=== PATIENT | male | born 1960 | race Caucasian/White ===

== ENCOUNTER 2016-08-24 15:23 | Emergency (ER) | payer MEDICAID ==
[2016-08-24] MEDS ORDERED: SULFAMETH/TRIMETH DS 800/160 MG TABLET PO ONE (16:56)
[2016-08-24] MEDS ORDERED: IBUPROFEN 400 MG TABLET PO ONE (16:56)
[2016-08-24] MEDS ORDERED: CHERRY SYRUP 10 ML UDC PO ONE (16:57)
[2016-08-24] MEDS ORDERED: DEXAMETHASONE 10 MG/ML VIAL ONE (16:57)
[2016-08-24] MEDS: SULFAMETH/TRIMETH DS 800/160 MG TABLET PO STA (16:59)
[2016-08-24] MEDS: DEXAMETHASONE 10 MG/ML VIAL PO STA (16:59)
[2016-08-24] MEDS: IBUPROFEN 400 MG TABLET PO STA (16:59)
[2016-08-24] MEDS: HYDROcod/ACETAM 5/325 MG TABLET PO STA (17:15)
== END 2016-08-24 17:17 | disposition home or self-care (01) ==
DX: K04.7 Periapical abscess without sinus (principal); K02.9 Dental caries, unspecified; F17.200 Nicotine dependence, unspecified, uncomplicated
CPT/HCPCS: 99283; A9270

== ENCOUNTER 2016-10-13 15:33 | Outpatient (CLI) | payer MEDICAID | END 2016-10-13 15:34 | disposition home or self-care (01) | DX: J42 Unspecified chronic bronchitis (principal) ==

== ENCOUNTER 2017-04-25 23:21 | Outpatient (CLI) | payer SELFPAY | END 2017-04-25 23:22 | disposition critical access hospital (66) | LOC: EMS 23:21 | PROVIDERS: ATTEND Surgery | DX: R06.00 Dyspnea, unspecified (principal) | CPT/HCPCS: A0425; A0429 ==

== ENCOUNTER 2017-04-25 23:34 | Emergency (ER) | payer SELFPAY ==
[2017-04-26] MEDS ORDERED: IBUPROFEN 800 MG TABLET PO STA (00:05)
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
[2017-04-26] MEDS ORDERED: IBUPROFEN 800 MG TABLET PO ONE (00:16)
--- NOTE | 2017-04-26 00:54 | XRAY Preliminary Report ---
Exam: XR CHEST 2 VIEW PA/LAT IMPRESSION: COPD without acute process seen in the chest. [facility] SITE ID: [id number]
--- NOTE | 2017-04-26 00:56 | XRAY Report ---
EXAM: CHEST RADIOGRAPHY EXAM DATE: 04/26/2017 12:20 AM. CLINICAL HISTORY: Cough and dyspnea. COMPARISON: 10/13/2016. TECHNIQUE: 2 views. FINDINGS: Lungs/Pleura: Large volumes. No focal opacities evident. No pneumothorax or pleural effusion. Mediastinum: Within exam limitations, cardiomediastinal contour is normal. Other: Old left posterior rib fracture. IMPRESSION: COPD without acute process seen in the chest. [facility] Referring Provider Line: [phone] SITE ID: [id number]
[2017-04-26 01:22] VITALS: BP 115/79
== END 2017-04-26 01:31 | disposition home or self-care (01) ==
LOC: EDUNIT# → EDBD → ED 23:34 → SUPCPDRO 23:34 → ED 04-26 01:31
DX: J41.0 Simple chronic bronchitis (principal); F10.920 Alcohol use, unspecified with intoxication, uncomplicated; M54.5 Low back pain; F17.210 Nicotine dependence, cigarettes, uncomplicated; Z86.73 Personal history of transient ischemic attack (TIA), and cerebral infarction without residual deficits
CPT/HCPCS: 71020; 93005; 99283; 99284; A9270

== ENCOUNTER 2017-06-17 17:46 | Outpatient (CLI) | payer MEDICAID | END 2017-06-17 17:47 | disposition critical access hospital (66) | LOC: EMS 17:46 | PROVIDERS: ATTEND Surgery | DX: M25.551 Pain in right hip (principal); V18.4XXA Pedal cycle driver injured in noncollision transport accident in traffic accident, initial encounter; Y93.55 Activity, bike riding; Y92.413 State road as the place of occurrence of the external cause | CPT/HCPCS: A0425; A0427 ==

== ENCOUNTER 2017-06-17 18:18 | Inpatient (IN) | payer MEDICAID ==
[2017-06-17] MEDS ORDERED: HYDROmorphone 1 MG/ML SYRINGE IVP STA (19:50)
[2017-06-17] MEDS ORDERED: MULTIVITAMIN 10 ML in SODIUM CHLORIDE 0.9% 1,000 ML IV STA (19:51)
[2017-06-17] MEDS ORDERED: THIAMINE INJ 100 MG, FOLIC ACID INJ 1 MG in SODIUM CHLORIDE 0.9% 100ML 100 ML IV STA (19:51)
[2017-06-17] MEDS ORDERED: MAGNESIUM SULFATE 2 GRAM 2 GM/50 ML BAG IV SCH (19:51)
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
--- NOTE | 2017-06-17 19:59 | XRAY Report ---
EXAM: RIGHT HIP AND PELVIS RADIOGRAPHY EXAM DATE: 06/17/2017 07:44 PM. HISTORY: Trauma, pain. COMPARISONS: None. TECHNIQUE: 1 view of the pelvis and 1 view of the hip. FINDINGS: Bones: Oblique fracture through the intertrochanteric portion of the right femoral neck with almost c omplete apposition of fracture fragments and slight apex anterior angulation. Otherwise unremarkable. Joints: Mild bilateral hip joint space narrowing. Unremarkable SI joints and pubic symphysis. Soft Tissues: Unremarkable. IMPRESSION: Right intertrochanteric fracture. [facility] Referring Provider Line: [phone] SITE ID: [id number]
--- NOTE | 2017-06-17 19:59 | XRAY Preliminary Report ---
Exam: XR HIP W/PELVIS 4V RT IMPRESSION: Right intertrochanteric fracture. [facility] SITE ID: [id number]
[2017-06-17] MEDS ORDERED: SODIUM CHLORIDE FLUSH 0.9% 10 ML SYRINGE IVP PRN (20:17)
[2017-06-17] MEDS ORDERED: PROCHLORPERAZINE 10 MG/2 ML VIAL IVP PRN (20:17)
[2017-06-17] MEDS ORDERED: TEMAZEPAM 15 MG CAPSULE PO PRN (20:17)
[2017-06-17] MEDS ORDERED: LORazepam 0.5 MG TABLET PO PRN (20:21)
[2017-06-17] MEDS ORDERED: THIAMINE 100 MG/1 ML 2 ML MDV ONE (20:21)
[2017-06-17] MEDS ORDERED: ONDANSETRON 4 MG/2 ML VIAL IVP STA (20:30)
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
[2017-06-17 20:42] LABS: BASOPHILS # (AUTO) 0.1 10^3/uL (0.0-0.1); BASOPHILS % (AUTO) 0.7 %; EOSINOPHILS % (AUTO) 0.1 %; HGB - HEMOGLOBIN 12.9 g/dL (14.0-18.0); LYMPHOCYTES # (AUTO) 1.2 10^3/uL (1.5-3.5); LYMPHOCYTES % (AUTO) 7.5 %; MEAN CORPUSCULAR HGB CONC 33.3 g/dL (32.0-36.0); MEAN PLATELET VOLUME 10.8 fL (7.4-11.4); MONOCYTES # (AUTO) 0.5 10^3/uL (0.0-1.0); MONOCYTES % (AUTO) 2.9 %; NEUTROPHILS # (AUTO) 14.7 10^3/uL (1.5-6.6); NEUTROPHILS % (AUTO) 88.8 %; PLT - PLATELET COUNT 165 10^3/uL (130-450); RED BLOOD COUNT 4.02 10^6/uL (4.70-6.10); RED CELL DISTRIBUTION WIDTH 13.5 % (12.0-15.0); WHITE BLOOD COUNT 16.6 x10^3/uL (4.8-10.8)
[2017-06-17 20:48] LABS: PT - PROTHROMBIN TIME 11.4 secs (9.9-12.6)
[2017-06-17 20:54] LABS: ALBUMIN 4.6 g/dL (3.2-5.5); ALBUMIN/GLOBULIN RATIO 1.8 (1.0-2.2); BILIRUBIN,TOTAL 0.4 mg/dL (0.2-1.0); CALCIUM 8.4 mg/dL (8.5-10.3); CREATININE 0.7 mg/dL (0.6-1.2); MAGNESIUM 2.1 mg/dL (1.7-2.8); TOTAL PROTEIN 7.2 g/dL (6.7-8.2)
--- NOTE | 2017-06-17 21:14 | XRAY Report ---
EXAM: CHEST RADIOGRAPHY EXAM DATE: 06/17/2017 09:08 PM. CLINICAL HISTORY: Preop. COMPARISON: 04/26/2017 chest x-ray. TECHNIQUE: 1 view. FINDINGS: Lungs/Pleura: No focal opacities evident. No pleural effusion. No pneumothorax. Mediastinum: Within exam limitations, the cardiomediastinal contour is normal. Other: None. IMPRESSION: Normal single view chest. [facility] Referring Provider Line: [phone] SITE ID: [id number]
[2017-06-17] MEDS: SODIUM CHLORIDE FLUSH 0.9% 10 ML SYRINGE IVP SCH (22:36)
[2017-06-17] MEDS: oxyCODONE 5 MG TABLET PO PRN (22:49)
[2017-06-18] MEDS: oxyCODONE 5 MG TABLET PO PRN ×5 (02:56→23:53)
[2017-06-18] MEDS: SODIUM CHLORIDE FLUSH 0.9% 10 ML SYRINGE IVP SCH ×3 (04:56→18:02)
[2017-06-18] MEDS: D5.45NS W/20 MEQ KCL 1,000 ML IV SCH ×2 (06:14→18:00)
[2017-06-18] MEDS ORDERED: ROCURONIUM 50 MG/5 ML VIAL IVP ONE (10:15)
[2017-06-18] MEDS ORDERED: DEXAMETHASONE 4 MG/ML VIAL IVP ONE (10:15)
[2017-06-18] MEDS ORDERED: ACETAMINOPHEN 1,000 MG/100 ML 100 ML IV ONE (10:15)
[2017-06-18] MEDS ORDERED: ePHEDrine 50 MG/ML VIAL IVP ONE (10:15)
[2017-06-18] MEDS ORDERED: PHENYLEPHRINE 10 MG/ML VIAL IV ONE (10:15)
[2017-06-18] MEDS ORDERED: MIDAZOLAM 2 MG/2 ML VIAL IVP ONE (10:15)
[2017-06-18] MEDS ORDERED: PROPOFOL 200 MG/20 ML VIAL IVP ONE ×2 (10:15)
[2017-06-18] MEDS ORDERED: BUPIVACAINE 0.25%-EPI 1:200000 PF 30 ML VIAL SUBQ ONE ×2 (11:03)
[2017-06-18] MEDS ORDERED: LACTATED RINGERS 1,000 ML IV ONE ×2 (11:07→12:10)
[2017-06-18] MEDS: NICOTINE 21 MG PATCH TOP SCH ×2 (11:39→14:51)
[2017-06-18] MEDS: POLYETHYLENE GLYCOL 3350 17 GM PACKET PO SCH (11:41)
--- NOTE | 2017-06-18 12:02 | OPERATIVE REPORT ---
Operative Report - General Admit Date: 06/17/17 Procedure Date: 06/18/17 Planned Procedure: IM jessie right hip Pre-Op Diagnosis: intertrochanteric fx of right hip Procedure Performed: Intramedullary rodding right hip Post Op Diagnosis: same - Procedure Note Primary Surgeon: sim Anesthesia Provider: Karan Dillon Anesthesia Technique: General LMA
[2017-06-18] MEDS ORDERED: ACETAMINOPHEN 1,000 MG/100 ML 100 ML IV PRN (12:04)
[2017-06-18] MEDS ORDERED: BISACODYL 10 MG SUPP PR PRN (12:04)
[2017-06-18] MEDS ORDERED: ONDANSETRON 4 MG/2 ML VIAL IVP PRN (12:04)
[2017-06-18] MEDS: HYDROmorphone 1 MG/ML SYRINGE ONE ×2 (12:09→12:20)
--- NOTE | 2017-06-18 13:06 | XRAY Report ---
DATE OF SERVICE: RIGHT HIP AND PELVIS: 06/18/2017 COMPARISON: Hip and pelvis, right, 06/17/2017. INDICATION: Intraoperative views. FINDINGS-IMPRESSION: 1. ORTHOPEDIC HARDWARE IS PRESENT ABOUT THE RIGHT HIP. 2. ALIGNMENT APPEARS NEAR ANATOMIC. PLEASE REFER TO THE OPERATIVE REPORT FOR FURTHER DETAILS. TOTAL FLUORO TIME: 21 SECONDS. TOTAL NUMBER OF IMAGES: 2. TOTAL DOSE: 7.2 mGy TD: 06/18/2017 14:05 MTDD
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
[2017-06-18] MEDS: ACETAMINOPHEN 325 MG TABLET PO PRN (16:25)
[2017-06-18] MEDS: ceFAZolin 2 GM/50 ML 2 GM/50 ML BAG IV SCH (18:40)
[2017-06-18] MEDS ORDERED: CALCIUM CARBONATE CHEW 500 MG TABLET PO PRN (19:12)
[2017-06-18] MEDS ORDERED: CALCIUM CARBONATE CHEW 500 MG TABLET ONE (19:16)
[2017-06-19] MEDS: ceFAZolin 2 GM/50 ML 2 GM/50 ML BAG IV SCH (03:28)
[2017-06-19] MEDS: oxyCODONE 5 MG TABLET PO PRN ×5 (03:56→20:24)
[2017-06-19] MEDS: D5.45NS W/20 MEQ KCL 1,000 ML IV SCH ×3 (05:02→11:31)
[2017-06-19] MEDS: SODIUM CHLORIDE FLUSH 0.9% 10 ML SYRINGE IVP SCH ×3 (05:03→20:23)
[2017-06-19] MEDS ORDERED: PANTOPRAZOLE 40 MG TABLET PO SCH (07:00)
[2017-06-19] MEDS: ACETAMINOPHEN 325 MG TABLET PO PRN ×3 (08:13→20:25)
[2017-06-19] MEDS: NICOTINE 21 MG PATCH TOP SCH (08:14)
[2017-06-19] MEDS: POLYETHYLENE GLYCOL 3350 17 GM PACKET PO SCH (08:15)
--- NOTE | 2017-06-19 11:25 | PROVIDER PROGRESS NOTE ---
Subjective - Prog Note Date Prog Note Date: 06/19/17 Prog Note Time: 11:24 - Subjective Pt reports feeling: Improved (Usual post op pain. No distal weakness/numbness) Objective - Vital Signs/Intake & Output Vital Signs: Vital Signs x48h Temp Pulse Pulse Resp BP Pulse Ox 06/19/17 07:30 37.2 C 65 20 136/54 H 98 06/19/17 03:57 37.1 C 65 16 120/62 95 Intake & Output: Intake & Output 06/16/17 06/17/17 06/18/17 06/19/17 23:59 23:59 23:59 23:59 Intake Total 151.2 2885.000 2770.000 Output Total 700 3600 2600 Balance -548.8 -715.000 170.000 - Lab Results Fish Bones: 06/17/17 20:32 06/17/17 20:32 - Other Results/Comments Other Results/Comments: EXAM: Dressing ok. Minimal hip pain with rotation. N/V ok distally Assessment/Plan - Problem List (1) Intertrochanteric fracture of right hip Impression: Satis post op PLAN: Mobilize as tolerated in PT. Qualifiers: Encounter type: initial encounter Fracture type: closed Fracture alignment: displaced Qualified Code(s): S72.141A - Displaced intertrochanteric fracture of right femur, initial encounter for closed fracture
[2017-06-19 16:13] LABS: BASOPHILS # (AUTO) 0.1 10^3/uL (0.0-0.1); EOSINOPHILS % (AUTO) 0.2 %; HGB - HEMOGLOBIN 11.1 g/dL (14.0-18.0); LYMPHOCYTES # (AUTO) 2.1 10^3/uL (1.5-3.5); LYMPHOCYTES % (AUTO) 15.8 %; MEAN CORPUSCULAR HEMOGLOBIN 32.1 pg (27.0-31.0); MEAN CORPUSCULAR HGB CONC 32.8 g/dL (32.0-36.0); MEAN CORPUSCULAR VOLUME 97.8 fL (80.0-94.0); MEAN PLATELET VOLUME 10.4 fL (7.4-11.4); MONOCYTES # (AUTO) 1.9 10^3/uL (0.0-1.0); MONOCYTES % (AUTO) 14.3 %; NEUTROPHILS # (AUTO) 8.9 10^3/uL (1.5-6.6); NEUTROPHILS % (AUTO) 68.7 %; PLT - PLATELET COUNT 144 10^3/uL (130-450); RED BLOOD COUNT 3.46 10^6/uL (4.70-6.10); RED CELL DISTRIBUTION WIDTH 13.7 % (12.0-15.0); WHITE BLOOD COUNT 12.9 x10^3/uL (4.8-10.8)
[2017-06-19 16:22] LABS: ALBUMIN 3.9 g/dL (3.2-5.5); ALBUMIN/GLOBULIN RATIO 1.3 (1.0-2.2); BILIRUBIN,TOTAL 0.3 mg/dL (0.2-1.0); CREATININE 0.8 mg/dL (0.6-1.2); TOTAL PROTEIN 6.8 g/dL (6.7-8.2)
[2017-06-19 16:28] LABS: PLATELET ESTIMATE, MANUAL NORMAL (130-450,000) (NORMAL); PLATELET MORPHOLOGY NORMAL APPEARANCE (NORMAL); RBC MORPHOLOGY (MULTIPLE) NORMAL APPEARANCE (NORMAL)
[2017-06-20] MEDS: oxyCODONE 5 MG TABLET PO PRN ×5 (01:27→21:43)
[2017-06-20] MEDS: ACETAMINOPHEN 325 MG TABLET PO PRN ×2 (03:51→08:35)
[2017-06-20 05:09] LABS: BASOPHILS % (AUTO) 0.5 %; EOSINOPHILS % (AUTO) 0.6 %; HGB - HEMOGLOBIN 11.1 g/dL (14.0-18.0); LYMPHOCYTES % (AUTO) 21.6 %; MEAN CORPUSCULAR HEMOGLOBIN 31.7 pg (27.0-31.0); MEAN CORPUSCULAR HGB CONC 32.4 g/dL (32.0-36.0); MEAN CORPUSCULAR VOLUME 97.6 fL (80.0-94.0); MEAN PLATELET VOLUME 10.7 fL (7.4-11.4); MONOCYTES % (AUTO) 15.3 %; PLT - PLATELET COUNT 147 10^3/uL (130-450); RED CELL DISTRIBUTION WIDTH 13.3 % (12.0-15.0); WHITE BLOOD COUNT 11.3 x10^3/uL (4.8-10.8)
[2017-06-20 05:13] LABS: ABNORMAL LYMPHS % (MANUAL) 0 %; BAND NEUTROPHILS % (MANUAL) 0 %
[2017-06-20 05:32] LABS: ALBUMIN 3.8 g/dL (3.2-5.5); ALBUMIN/GLOBULIN RATIO 1.4 (1.0-2.2); BILIRUBIN,TOTAL 0.5 mg/dL (0.2-1.0); CALCIUM 9.2 mg/dL (8.5-10.3); CREATININE 0.8 mg/dL (0.6-1.2); MAGNESIUM 1.9 mg/dL (1.7-2.8); PHOSPHORUS 3.3 mg/dL (2.5-4.6); TOTAL PROTEIN 6.6 g/dL (6.7-8.2)
[2017-06-20 05:34] LABS: BASOPHILS # (MANUAL) 0.1 10^3/uL (0-0.1); BASOPHILS % (MANUAL) 1 %; DIFFERENTIAL COMMENT MANUAL DIFFERENTIAL; LYMPHOCYTES # (MANUAL) 2.1 10^3/uL (1.5-3.5); LYMPHOCYTES % (MANUAL) 19 %; MONOCYTES # (MANUAL) 0.6 10^3/uL (0.0-1.0); NEUTROPHILS # (MANUAL) 8.5 10^3/uL (1.5-6.6); NEUTROPHILS % (MANUAL) 75 %; PLATELET ESTIMATE, MANUAL NORMAL (130-450,000) (NORMAL); RBC MORPHOLOGY (MULTIPLE) NORMAL APPEARANCE (NORMAL)
[2017-06-20] MEDS: SODIUM CHLORIDE FLUSH 0.9% 10 ML SYRINGE IVP SCH ×2 (06:53→11:49)
[2017-06-20] MEDS: NICOTINE 21 MG PATCH TOP SCH (08:33)
[2017-06-20] MEDS: POLYETHYLENE GLYCOL 3350 17 GM PACKET PO SCH (08:34)
--- NOTE | 2017-06-20 12:50 | PROVIDER PROGRESS NOTE ---
Subjective - Prog Note Date Prog Note Date: 06/20/17 Prog Note Time: 12:44 - Subjective Pt reports feeling: Improved (Less pain today. Up in chair. No distal weakness /numbness) Objective - Vital Signs/Intake & Output Intake & Output: Intake & Output 06/17/17 06/18/17 06/19/17 06/20/17 23:59 23:59 23:59 23:59 Intake Total 151.2 2885.000 3810.000 1000 Output Total 700 3600 4450 2550 Balance -548.8 -715.000 -640.000 -1550 - Lab Results Fish Bones: 06/20/17 04:47 06/20/17 04:47 Other Labs: Lab Results x24hrs 06/20/17 06/20/17 06/19/17 Range/Units 04:47 04:47 16:04 WBC 11.3 H (4.8-10.8) x10^3/uL RBC 3.50 L (4.70-6.10) 10^6/uL Hgb 11.1 L (14.0-18.0) g/dL Hct 34.2 L (42.0-52.0) % MCV 97.6 H (80.0-94.0) fL MCH 31.7 H (27.0-31.0) pg MCHC 32.4 (32.0-36.0) g/dL RDW 13.3 (12.0-15.0) % Plt Count 147 (130-450) 10^3/uL MPV 10.7 (7.4-11.4) fL Neut # Not Reportable (1.5-6.6) 10^3/uL Lymph # Not Reportable (1.5-3.5) 10^3/uL Day # Not Reportable (0.0-1.0) 10^3/uL Eos # Not Reportable (0.0-0.7) 10^3/uL Baso # Not Reportable (0.0-0.1) 10^3/uL Absolute Nucleated RBC Not Reportable x10^3/uL Total Counted 100 Band Neuts % (Manual) 0 (0 - 10) % Abnorm Lymph % (Manual) 0 % Nucleated RBC % Not Reportable /100WBC Neutrophils # (Manual) 8.5 H (1.5-6.6) 10^3/uL Lymphocytes # (Manual) 2.1 (1.5-3.5) 10^3/uL Monocytes # (Manual) 0.6 (0.0-1.0) 10^3/uL Eosinophils # (Manual) 0.0 (0-0.7) 10^3/uL Basophils # (Manual) 0.1 (0-0.1) 10^3/uL Differential Comment MANUAL DIFFERENTIAL Manual Slide Review Platelet Estimate NORMAL (130-450,000) (NORMAL) Platelet Morphology (NORMAL) RBC Morph Micro Appear NORMAL APPEARANCE (NORMAL) Sodium 135 (135-145) mmol/L Potassium 4.2 (3.5-5.0) mmol/L Chloride 96 L (101-111) mmol/L Carbon Dioxide 28 (21-32) mmol/L Anion Gap 11.0 (6-13) BUN 11 (6-20) mg/dL Creatinine 0.8 (0.6-1.2) mg/dL Estimated GFR (MDRD) 100 (>89) Glucose 119 H (70-100) mg/dL Calcium 9.2 (8.5-10.3) mg/dL Phosphorus 3.3 (2.5-4.6) mg/dL Magnesium 1.9 (1.7-2.8) mg/dL Total Bilirubin 0.5 (0.2-1.0) mg/dL AST 24 (10-42) IU/L ALT 17 (10-60) IU/L Alkaline Phosphatase 41 L (42-121) IU/L Total Protein 6.6 L (6.7-8.2) g/dL Albumin 3.8 (3.2-5.5) g/dL Globulin 2.8 (2.1-4.2) g/dL Albumin/Globulin Ratio 1.4 (1.0-2.2) TSH 0.47 (0.34-5.60) uIU/mL 06/19/17 06/19/17 Range/Units 16:04 16:04 WBC 12.9 H (4.8-10.8) x10^3/uL RBC 3.46 L (4.70-6.10) 10^6/uL Hgb 11.1 L (14.0-18.0) g/dL Hct 33.9 L (42.0-52.0) % MCV 97.8 H (80.0-94.0) fL MCH 32.1 H (27.0-31.0) pg MCHC 32.8 (32.0-36.0) g/dL RDW 13.7 (12.0-15.0) % Plt Count 144 (130-450) 10^3/uL MPV 10.4 (7.4-11.4) fL Neut # 8.9 H (1.5-6.6) 10^3/uL Lymph # 2.1 (1.5-3.5) 10^3/uL Day # 1.9 H (0.0-1.0) 10^3/uL Eos # 0.0 (0.0-0.7) 10^3/uL Baso # 0.1 (0.0-0.1) 10^3/uL Absolute Nucleated RBC 0.00 x10^3/uL Total Counted Band Neuts % (Manual) (0 - 10) % Abnorm Lymph % (Manual) % Nucleated RBC % 0.0 /100WBC Neutrophils # (Manual) (1.5-6.6) 10^3/uL Lymphocytes # (Manual) (1.5-3.5) 10^3/uL Monocytes # (Manual) (0.0-1.0) 10^3/uL Eosinophils # (Manual) (0-0.7) 10^3/uL Basophils # (Manual) (0-0.1) 10^3/uL Differential Comment Manual Slide Review Indicated Platelet Estimate NORMAL (130-450,000) (NORMAL) Platelet Morphology NORMAL APPEARANCE (NORMAL) RBC Morph Micro Appear NORMAL APPEARANCE (NORMAL) Sodium 136 (135-145) mmol/L Potassium 4.6 (3.5-5.0) mmol/L Chloride 99 L (101-111) mmol/L Carbon Dioxide 30 (21-32) mmol/L Anion Gap 7.0 (6-13) BUN 14 (6-20) mg/dL Creatinine 0.8 (0.6-1.2) mg/dL Estimated GFR (MDRD) 100 (>89) Glucose 137 H (70-100) mg/dL Calcium 9.0 (8.5-10.3) mg/dL Phosphorus (2.5-4.6) mg/dL Magnesium (1.7-2.8) mg/dL Total Bilirubin 0.3 (0.2-1.0) mg/dL AST 24 (10-42) IU/L ALT 16 (10-60) IU/L Alkaline Phosphatase 44 (42-121) IU/L Total Protein 6.8 (6.7-8.2) g/dL Albumin 3.9 (3.2-5.5) g/dL Globulin 2.9 (2.1-4.2) g/dL Albumin/Globulin Ratio 1.3 (1.0-2.2) TSH (0.34-5.60) uIU/mL - Other Results/Comments Other Results/Comments: EXAM: Dressing ok. Sitting up in chair. Moves toes well. Sensation intact. Assessment/Plan - Problem List (1) Intertrochanteric fracture of right hip Impression: - Satis post op PLAN: Mobilize as tolerated. Qualifiers: Encounter type: initial encounter Fracture type: closed Fracture alignment: displaced Qualified Code(s): S72.141A - Displaced intertrochanteric fracture of right femur, initial encounter for closed fracture
[2017-06-20] MEDS ORDERED: TEMAZEPAM 15 MG CAPSULE PO PRN (15:26)
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
[2017-06-20] MEDS: MORPHINE ER 15 MG TABLET PO SCH (21:41)
[2017-06-21] MEDS: oxyCODONE 5 MG TABLET PO PRN ×4 (02:08→16:12)
[2017-06-21] MEDS: ACETAMINOPHEN 325 MG TABLET PO PRN ×2 (06:52→21:21)
--- NOTE | 2017-06-21 08:41 | PROVIDER PROGRESS NOTE ---
Subjective - General Admit Date: 06/17/17 Procedure Date: 06/18/17 Post Op Days: 3 - Review of Systems Wound/Incisions: positive: Dressing dry and intact Musculoskeletal: positive: Joint pain Skin: positive: No symptoms Psychiatric: positive: Depression All Other Systems: positive: Reviewed and negative Objective - Patient Data Reviewed Vital Signs: Yes Vital Signs: Vital Signs x48h Temp Pulse Resp BP Pulse Ox 06/21/17 00:45 37.0 C 63 18 116/65 97 Intake & Output: Intake and Output Totals x24h 06/19/17 06/20/17 06/21/17 23:59 23:59 23:59 Intake Total 3810.000 2170 250 Output Total 4450 3675 1225 Balance -640.000 -1505 -975 - Lab Results Lab Results: 06/20/17 04:47 06/20/17 04:47 - Current Medications Current Medications: Current Medications Generic Name Dose Route Start Last Admin Trade Name Freq PRN Reason Stop Dose Admin Acetaminophen 650 - 975 mg 06/18/17 12:04 06/21/17 06:52 Tylenol PO 650 mg Q4HR PRN Administration PAIN Morphine Sulfate 15 mg 06/20/17 21:00 06/20/17 21:41 PO 15 mg BID LORIE Administration Oxycodone HCl 5 mg 06/20/17 15:26 06/21/17 06:53 Roxicodone PO 5 mg Q4HR PRN Administration Pain 5 to 7 Oxycodone HCl 10 mg 06/20/17 15:26 06/21/17 02:08 Roxicodone PO 10 mg Q4HR PRN Administration Severe Pain - Physical Exam Wound/Incisions: positive: Healing well, No drainage General Appearance: positive: No acute distress, Lethargic Extremities: positive: Joint swelling Neurologic/Psychiatric: positive: Motor nml, Sensation nml, Depressed mood/ affect Impression/Plan - Problem List Problem List: POD # 4 Pt is progressing with PT. He will have dressings changes prn Staple removal scheduled for 14 days post-op, shower covered. Rec. weight bearing as tolerated with walker/crutches. Rehab. placement would be desired if it can be achieved.
[2017-06-21] MEDS: MORPHINE ER 15 MG TABLET PO SCH (08:51)
[2017-06-21] MEDS: NICOTINE 21 MG PATCH TOP SCH (08:56)
[2017-06-21] MEDS: POLYETHYLENE GLYCOL 3350 17 GM PACKET PO SCH (08:56)
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
[2017-06-21] MEDS: oxyCODONE ER 10 MG TABLET PO SCH (21:19)
[2017-06-22] MEDS: oxyCODONE 5 MG TABLET PO PRN ×2 (02:05→09:15)
[2017-06-22] MEDS: oxyCODONE ER 10 MG TABLET PO SCH ×3 (06:17→21:21)
--- NOTE | 2017-06-22 07:25 | PROVIDER PROGRESS NOTE ---
Subjective - General Admit Date: 06/17/17 Procedure Date: 06/18/17 Post Op Days: 4 - Review of Systems Wound/Incisions: positive: Healing well, No drainage Musculoskeletal: positive: Joint pain Skin: positive: No symptoms Psychiatric: positive: No symptoms Objective - Patient Data Reviewed Vital Signs: Yes Vital Signs: Vital Signs x48h Temp Pulse Resp BP Pulse Ox 06/21/17 23:34 37.0 C 60 20 114/56 L 97 Intake & Output: Intake and Output Totals x24h 06/20/17 06/21/17 06/22/17 23:59 23:59 23:59 Intake Total 2170 2566 500 Output Total 3675 2225 800 Balance -1505 341 -300 - Lab Results Lab Results: 06/22/17 08:55 06/22/17 08:55 - Current Medications Current Medications: Current Medications Generic Name Dose Route Start Last Admin Trade Name Freq PRN Reason Stop Dose Admin Acetaminophen 650 - 975 mg 06/18/17 12:04 06/21/17 21:21 Tylenol PO 325 mg Q4HR PRN Administration PAIN Nicotine 1 patch 06/21/17 09:00 06/21/17 08:56 Nicoderm TOP 1 patch DAILY LORIE Administration Oxycodone HCl 5 mg 06/20/17 15:26 06/21/17 06:53 Roxicodone PO 5 mg Q4HR PRN Administration Pain 5 to 7 Oxycodone HCl 10 mg 06/20/17 15:26 06/22/17 02:05 Roxicodone PO 10 mg Q4HR PRN Administration Severe Pain Oxycodone HCl 10 mg 06/21/17 22:00 06/22/17 06:17 Oxycontin PO 10 mg TID LORIE Administration Polyethylene Glycol 17 gm 06/21/17 09:00 06/21/17 08:56 Miralax PO 17 gm DAILY LORIE Administration - Physical Exam Wound/Incisions: positive: Dressing dry and intact General Appearance: positive: No acute distress Extremities: positive: Joint swelling Neurologic/Psychiatric: positive: Motor nml, Sensation nml, Mood/affect nml Impression/Plan - Problem List Problem List: POD #4 Pt is more alert and conversant today. States that there is very little pain. Want's to ambulate more and states that he would like to be discharged soon. Plan at D/c will be for staple removal POD 14. F/u in clinic. WB with walker as tolerated. To keep incision sites clean/dry.
[2017-06-22 09:01] LABS: BASOPHILS # (AUTO) 0.1 10^3/uL (0.0-0.1); BASOPHILS % (AUTO) 0.6 %; EOSINOPHILS # (AUTO) 0.3 10^3/uL (0.0-0.7); EOSINOPHILS % (AUTO) 3.1 %; HGB - HEMOGLOBIN 11.5 g/dL (14.0-18.0); LYMPHOCYTES # (AUTO) 1.7 10^3/uL (1.5-3.5); LYMPHOCYTES % (AUTO) 19.7 %; MEAN CORPUSCULAR HEMOGLOBIN 32.2 pg (27.0-31.0); MEAN CORPUSCULAR HGB CONC 33.6 g/dL (32.0-36.0); MEAN CORPUSCULAR VOLUME 95.9 fL (80.0-94.0); MEAN PLATELET VOLUME 9.9 fL (7.4-11.4); MONOCYTES # (AUTO) 0.9 10^3/uL (0.0-1.0); MONOCYTES % (AUTO) 10.1 %; NEUTROPHILS # (AUTO) 5.7 10^3/uL (1.5-6.6); NEUTROPHILS % (AUTO) 66.5 %; PLT - PLATELET COUNT 214 10^3/uL (130-450); RED BLOOD COUNT 3.58 10^6/uL (4.70-6.10); RED CELL DISTRIBUTION WIDTH 13.2 % (12.0-15.0); WHITE BLOOD COUNT 8.6 x10^3/uL (4.8-10.8)
[2017-06-22] MEDS: NICOTINE 21 MG PATCH TOP SCH (09:03)
[2017-06-22] MEDS: POLYETHYLENE GLYCOL 3350 17 GM PACKET PO SCH (09:04)
[2017-06-22 09:10] LABS: ALBUMIN 3.6 g/dL (3.2-5.5); BILIRUBIN,TOTAL 0.6 mg/dL (0.2-1.0); CALCIUM 8.9 mg/dL (8.5-10.3); CREATININE 0.9 mg/dL (0.6-1.2); TOTAL PROTEIN 7.2 g/dL (6.7-8.2)
[2017-06-22] MEDS: ACETAMINOPHEN 325 MG TABLET PO PRN ×2 (09:16→21:21)
[2017-06-22 09:27] LABS: PLATELET MORPHOLOGY NORMAL APPEARANCE (NORMAL)
[2017-06-22 09:28] LABS: PLATELET ESTIMATE, MANUAL NORMAL (130-450,000) (NORMAL); RBC MORPHOLOGY (MULTIPLE) NORMAL APPEARANCE (NORMAL)
--- NOTE | 2017-06-22 15:46 | Discharge Plan ---
Discharge Plan Disposition: Home, Self Care Condition: Stable Prescriptions: oxyCODONE [Roxicodone] 5 mg PO Q4HR PRN #20 tablet PRN Reason: Pain 5 to 7 Aspirin 325 mg PO DAILY #10 tablet Walker [Ultra-Light Rollator] 1 each MC 1-2XD #1 each Diet: Regular Activity Restrictions: Wt Bearing as Tolerated Shower Restrictions: No Assistance Devices: Walker Instruction Topics: Hip Precautions, Fx Hip Surg Dc, Oxycodone tablets or capsules Additional Instructions or Follow Up instructions: May follow up Cheryle Paulson on 07/02/2017 in clinic and for staple removal , and keep incision sites clean and dry. May follow up PCP in one week. Follow-Up Care: [facility] - Pulmonary, Outpatient Rehab - PT, Outpatient Rehab - OT No Smoking: If you smoke, Please STOP! Call for help. Follow-up with: Denis Albrecht PA-C [Primary Care Provider] -
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
[2017-06-23 05:03] LABS: ALBUMIN 3.5 g/dL (3.2-5.5); BASOPHILS # (AUTO) 0.1 10^3/uL (0.0-0.1); BASOPHILS % (AUTO) 1.1 %; BILIRUBIN,TOTAL 0.7 mg/dL (0.2-1.0); CALCIUM 8.8 mg/dL (8.5-10.3); CREATININE 0.8 mg/dL (0.6-1.2); EOSINOPHILS # (AUTO) 0.3 10^3/uL (0.0-0.7); EOSINOPHILS % (AUTO) 3.8 %; HGB - HEMOGLOBIN 11.4 g/dL (14.0-18.0); LYMPHOCYTES # (AUTO) 2.1 10^3/uL (1.5-3.5); MEAN CORPUSCULAR HEMOGLOBIN 32.4 pg (27.0-31.0); MEAN CORPUSCULAR HGB CONC 33.4 g/dL (32.0-36.0); MEAN CORPUSCULAR VOLUME 96.8 fL (80.0-94.0); MEAN PLATELET VOLUME 9.8 fL (7.4-11.4); MONOCYTES % (AUTO) 12.4 %; NEUTROPHILS # (AUTO) 4.5 10^3/uL (1.5-6.6); NEUTROPHILS % (AUTO) 56.7 %; PLT - PLATELET COUNT 250 10^3/uL (130-450); RED BLOOD COUNT 3.52 10^6/uL (4.70-6.10); RED CELL DISTRIBUTION WIDTH 13.5 % (12.0-15.0)
[2017-06-23] MEDS: oxyCODONE ER 10 MG TABLET PO SCH (06:24)
[2017-06-23] MEDS: NICOTINE 21 MG PATCH TOP SCH (08:13)
[2017-06-23] MEDS: POLYETHYLENE GLYCOL 3350 17 GM PACKET PO SCH (08:14)
[2017-06-23 09:02] VITALS: BP 125/86
== END 2017-06-23 09:25 | disposition home or self-care (01) | DRG 482 ==
LOC: ED 18:18 → MS3 20:17
PROVIDERS: ADMIT Hospitalist; ATTEND Nurse Practitioner
PROC: 0QS606Z Reposition Right Upper Femur with Intramedullary Internal Fixation Device, Open Approach (ICD-10-PCS; principal; 2017-06-18 10:00)
DX: S72.144A Nondisplaced intertrochanteric fracture of right femur, initial encounter for closed fracture (principal); V19.3XXA Pedal cyclist (driver) (passenger) injured in unspecified nontraffic accident, initial encounter; Y93.55 Activity, bike riding; Y92.9 Unspecified place or not applicable; F10.20 Alcohol dependence, uncomplicated; F12.20 Cannabis dependence, uncomplicated; J41.0 Simple chronic bronchitis; G89.29 Other chronic pain; M54.5 Low back pain; F17.210 Nicotine dependence, cigarettes, uncomplicated; Z79.51 Long term (current) use of inhaled steroids; F10.920 Alcohol use, unspecified with intoxication, uncomplicated
CPT/HCPCS: 36415; 71045; 80053; 80320; 83690; 83735; 84100; 84443; 85025; 85610; 86850; 86900; 86901; 93005; 96365; 96368; 96375; 99283; 99284; 99285

== ENCOUNTER 2018-05-29 18:07 | Outpatient (CLI) | payer MEDICAID | END 2018-05-29 23:59 | disposition EMS.NT | LOC: EMS 18:07 | PROVIDERS: ATTEND Surgery | DX: Z03.89 Encounter for observation for other suspected diseases and conditions ruled out (principal) ==

== ENCOUNTER 2018-10-14 23:25 | Outpatient (CLI) | payer MEDICAID | END 2018-10-14 23:26 | disposition critical access hospital (66) | LOC: EMS 23:25 | PROVIDERS: ATTEND Surgery | DX: F99 Mental disorder, not otherwise specified (principal); R26.2 Difficulty in walking, not elsewhere classified; Z76.0 Encounter for issue of repeat prescription | CPT/HCPCS: A0425; A0429 ==

== ENCOUNTER 2018-10-14 23:49 | Emergency (ER) | payer MEDICAID ==
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
[2018-10-15 03:01] VITALS: BP 113/97
== END 2018-10-15 03:10 | disposition home or self-care (01) ==
LOC: EDUNIT# → ED 23:49
DX: F10.920 Alcohol use, unspecified with intoxication, uncomplicated (principal); F17.200 Nicotine dependence, unspecified, uncomplicated; Z59.0 Homelessness
CPT/HCPCS: 99283

== ENCOUNTER 2019-02-02 13:38 | Outpatient (CLI) | payer MEDICAID | END 2019-02-02 13:39 | disposition critical access hospital (66) | LOC: EMS 13:38 | PROVIDERS: ATTEND Surgery | DX: S99.912A Unspecified injury of left ankle, initial encounter (principal); V18.4XXA Pedal cycle driver injured in noncollision transport accident in traffic accident, initial encounter; Y93.55 Activity, bike riding; Y92.414 Local residential or business street as the place of occurrence of the external cause ==

== ENCOUNTER 2019-02-02 14:11 | Emergency (ER) | payer MEDICAID ==
[2019-02-02] MEDS ORDERED: oxyCODONE 5 MG TABLET PO STA (14:13)
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
--- NOTE | 2019-02-02 15:18 | XRAY Report ---
Reason: ankle / foot inj Procedure Date: 02/02/2019 Accession Number: [id number] / [id number] Procedure: XR - Foot 3 View LT CPT Code: FULL RESULT: EXAM: LEFT FOOT RADIOGRAPHY EXAM DATE: 02/02/2019 03:05 PM. CLINICAL HISTORY: Foot pain COMPARISON: None. TECHNIQUE: 3 views. FINDINGS: Bones: Bones are osteopenic. There is lucency through the base of the second, third, and fourth metatarsals. Joints: No evidence of dislocation. Soft Tissues: No unexpected soft tissue findings. IMPRESSION: 1. Bones are osteopenic. 2. There is lucency through the base of the second, third, and fourth metatarsals. These are suspicious for minimally displaced fractures. 3. There is no evidence of dislocation. RADIA
--- NOTE | 2019-02-02 15:28 | XRAY Report ---
Reason: ankle / foot inj Procedure Date: 02/02/2019 Accession Number: [id number] / [id number] Procedure: XR - Ankle 3 View LT CPT Code: FULL RESULT: EXAM: LEFT ANKLE RADIOGRAPHY EXAM DATE: 02/02/2019 03:05 PM. CLINICAL HISTORY: Ankle / foot inj. COMPARISON: ANKLE 3 VIEW LT 12/27/2014 4:14 PM. TECHNIQUE: 3 views. FINDINGS: Bones: No evidence of ankle fracture. Joints: There is joint space narrowing. Soft Tissues: None expect soft tissue findings. IMPRESSION: No ankle fracture or dislocation. Findings within the foot are detailed separately. RADIA
[2019-02-02 17:24] VITALS: BP 110/60
== END 2019-02-02 16:25 | disposition home or self-care (01) ==
LOC: EDUNIT# → ED 14:11
DX: S92.325A Nondisplaced fracture of second metatarsal bone, left foot, initial encounter for closed fracture (principal); S92.335A Nondisplaced fracture of third metatarsal bone, left foot, initial encounter for closed fracture; S92.345A Nondisplaced fracture of fourth metatarsal bone, left foot, initial encounter for closed fracture; V18.0XXA Pedal cycle driver injured in noncollision transport accident in nontraffic accident, initial encounter; X50.1XXA Overexertion from prolonged static or awkward postures, initial encounter; Y93.55 Activity, bike riding; M85.872 Other specified disorders of bone density and structure, left ankle and foot; F17.200 Nicotine dependence, unspecified, uncomplicated
CPT/HCPCS: 73610; 73630; 99283; A9270

== ENCOUNTER 2019-06-13 16:29 | Outpatient (CLI) | payer MEDICAID | END 2019-06-13 16:30 | disposition EMS.NT | LOC: EMS 16:29 | PROVIDERS: ATTEND Surgery | DX: Z03.89 Encounter for observation for other suspected diseases and conditions ruled out (principal) ==

== ENCOUNTER 2019-06-13 17:13 | Emergency (ER) | payer OTHER, MEDICAID ==
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
[2019-06-13 17:36] VITALS: BP 138/96
== END 2019-06-13 17:45 | disposition home or self-care (01) ==
LOC: ED 17:13
DX: Z02.89 Encounter for other administrative examinations (principal); R45.4 Irritability and anger; F17.200 Nicotine dependence, unspecified, uncomplicated
CPT/HCPCS: 99281

== ENCOUNTER 2020-06-17 21:56 | Outpatient (CLI) | payer MEDICAID ==
--- OUTSIDE RECORDS SUMMARY | 2020-06-26 00:02 | EXTERNAL MEDICAL SUMMARY RPT | Continuity of Care Document ---
:1960 Demographics Phone Unavailable Preferred Language Unknown Marital Status Unknown Orthodoxy Affiliation Unknown Race Unknown Ethnic Group Unknown Author Organization [place] Address [address] [place] [address] Phone Care Team Providers Name Role Phone Katus Unavailable Unavailable Problems date description facility 2020-06-17 22:44 [place] [facility] Allergies date description facility TOLTERODINE TARTRATE [facility] ical Center SULFA [facility]OTICS [facility]RAZOLE [facility] CEFACLOR [facility] HYDROCODONE-ACETAMINOPHEN [facility] MINOCYCLINE [facility] NIT[facility]URANTOIN [facility] PAROXETINE HCL [facility] SULFA (SULFONAMIDE ANTIBIOTICS) [facility] NO KNOWN ALLERGIES [facility] SHELLFISH [facility]ERIV[facility] OXYCODONE [facility] CEPHALEXIN [facility] IRON SUCROSE [facility] venom-wasp [facility] Results test status date ordered by attending specimen ubaldo e null F 2020-06-17 PHEL.01 Marcelo Concepcion 2020-06 08:22:00 22:49:00 facility observation status value reference units lab abnor mal line range code notes [facility] 89 70 - 100 Medical [place] Social History date description facility [id number]
== END 2020-06-17 21:57 | disposition critical access hospital (66) ==
LOC: EMS 21:56
PROVIDERS: ATTEND Surgery
DX: M79.601 Pain in right arm (principal)
CPT/HCPCS: A0425; A0429; A0999

== ENCOUNTER 2020-06-17 22:44 | Emergency (ER) | payer MEDICAID ==
--- NOTE | 2020-06-17 23:18 | ED Physician Documentation ---
History of Present Illness - Stated complaint Stated Complaint: ETOH - Chief complaint Chief Complaint: General - History obtained from History obtained from: Patient, EMS - History of Present Illness Timing: How many weeks ago (1) - Additonal information Additional information: BIBA. Patient says he fell one week ago. He repeatedly insists on having xrays of his hip and clavicle. When I attempt to ascertain other information such as the nature of the fall and why he comes in tonight if he fell 1 week ago, he repeatedly insists he needs xrays and says he will "go to the front to check in". It is explained to patient several times, by myself and other ED staff, that he is already checked in, yet he repeatedly says he is unhappy with lack of attention to his case and that he will go to the hotel front desk agent to check in. He is argumentative with me and early in HPI tells me to "drop it", and says "I can cause all kinds of problems here". PD PAST MEDICAL HISTORY - Past Medical History Cardiovascular: None Respiratory: Asthma, COPD Endocrine/Autoimmune: None GI: None : Other HEENT: Chronic vision loss Psych: Bipolar disorder Musculoskeletal: Other Derm: None - Past Surgical History Past Surgical History: Yes General: Other Ortho: Other - Present Medications Home Medications: Ambulatory Orders Medication Instructions Recorded Confirmed Albuterol Sulfate [Albuterol 1 puffs 02/02/19 Sulfate Hfa] Oxycodone HCl/Acetaminophen 1 - 2 each PO Q6H PRN #14 tablet 02/02/19 [Percocet 5-325 mg Tablet] - Allergies Allergies/Adverse Reactions: Allergies Allergy/AdvReac Type Severity Reaction Status Date / Time venom-wasp [wasp venom] Allergy Anaphylaxis Verified 06/17/20 22:47 - Social History Does the pt smoke?: Yes Smoking Status: Current every day smoker Does the pt drink ETOH?: Yes Does the pt have substance abuse?: No - Immunizations Immunizations are current?: Yes Immunizations: TDAP current <10years - POLST Patient has POLST: No POLST Status: Full Code PD ED PE NORMAL - Vitals Vital signs reviewed: Yes - General General: Alert and oriented X 3, No acute distress, Well developed/nourished - Cardiac Cardiac: RRR, No murmur - Extremities Extremities: No tenderness to palpate (nontender right hip, nontender right clavicle) Results - Vitals Vitals: Vital Signs - 24 hr 06/17/20 06/18/20 22:47 03:50 Temperature 36.6 C Heart Rate 64 78 Respiratory 16 14 Rate Blood Pressure 128/77 122/70 O2 Saturation 98 96 Oxygen O2 Source Room air PD MEDICAL DECISION MAKING - ED course ED course: At 03:05, I attempted to reassess patient; he has been sleeping and was talking calmly to other staff earlier (after I had tried to initially assess him), and thus it appeared that patient would be more appropriate at this time. Unfortunately, he again was angry and insisting on providing a long list of deirdre ious problems. He tells "I was planning on coming to the ER this week anyway for all this shit". He tells me he had an "asthma attack" earlier tonight, he says he wants an xray of his right clavicle and right hip; he says he has a history of a "broken clavicle", but when I asked when this was diagnosed, he tells me "I was never diagnosed, but I saw the xray and I know I cracked my clavicle". He wa nts a right hip xray because "I'm overdue to have it checked"; he says he underwent right hip surgery in the past and that the orthopedic surgeon won't see him any more or left the practice. He says he wants an antibiotic for a nasal infection. He says he needs pain medication but that tylenol doesn't work and ibuprofen "is tough on my kidneys". He says he has "plenty other problems" that he wants me to assess. My attempts to have him focus on emergent problems result in him again becoming very upset with me and he refuses to pare down his long list of problems to new/emergent issues. He again tells me he will leave and "check in at the front" despite my telling him that he is already checked in as an ER patient. Exam is limited due to patient becoming angry during HPI as noted above. There is no apparent discomfort/tenderness when I palpate his right clavicle nor when I palpate his right hip. He is noted to be using both upper extremities (movement of the arms as well as using both arms to push himself up in stretcher) without any obvious difficulty or discomfort. Similarly, he is able to ambulate and fully weight-bear BLE without any apparent difficulty or discomfort. He is not amenable to multiple attempts I have made to ascertain why he feels he needs xrays and the nature and timing of his various other complaints. He is in NAD during several hours of ED observation and thus discharged without emergent testing or treatment. Departure - Departure Disposition: 01 Home, Self Care Clinical Impression: Fall Condition: Good Instructions: ED Mechanical Fall Follow-Up: [facility] [Provider Group] Discharge Date/Time: 06/18/20 03:50
[2020-06-18 04:43] VITALS: BP 122/70
--- OUTSIDE RECORDS SUMMARY | 2020-06-26 00:02 | EXTERNAL MEDICAL SUMMARY RPT | Continuity of Care Document ---
:1960 Demographics Phone Unavailable Preferred Language Unknown Marital Status Unknown Muslim Affiliation Unknown Race Unknown Ethnic Group Unknown Author Organization [place] Address [address] [place] [address] Phone Care Team Providers Name Role Phone Katus Unavailable Unavailable Problems date description facility 2020-06-17 22:44 [facility] Allergies date description facility TOLTERODINE TARTRATE [facility] CEFACLOR [facility] HYDROCODONE-ACETAMINOPHEN [facility] MINOCYCLINE [facility] NITROFURANTOIN [facility] PAROXETINE HCL [facility] SULFA (SULFONAMIDE ANTIBIOTICS) [facility] NO KNOWN ALLERGIES [facility] SHE[facility]FISH [facility]IV[facility] OXYCODONE [facility] CEPHALEXIN [facility] IRON SUCROSE [facility] venom-wasp [facility] Results test status date ordered by attending specimen ubaldo e null F 2020-06-17 PHEL.01 Marcelo Concepcion 2020-06 08:22:00 22:49:00 facility observation status value reference units lab abnor mal line range code notes [facility] 89 70 - 100 Medical [place] Social History date description facility [id number]
== END 2020-06-18 03:50 | disposition home or self-care (01) ==
LOC: ED 22:44
DX: R29.6 Repeated falls (principal)
CPT/HCPCS: 99281; 99283

== ENCOUNTER 2021-01-23 08:00 | Outpatient (CLI) | payer MEDICAID ==
--- NOTE | 2021-01-23 18:12 | XRAY Report ---
PROCEDURE: Hip w/Pelvis 1V RT INDICATIONS: RIGHT HIP PAIN TECHNIQUE: AP pelvis with lateral view(s) of the right hip(s). COMPARISON: None. FINDINGS: Bones: Right-sided femoral nail and dynamic compression screw noted to. No evidence of hardware failu re or loosening. No acute fracture. There is moderate acetabular joint space narrowing. Soft tissues: The visualized bowel gas pattern is normal. No suspicious soft tissue calcifications. IMPRESSION: No evidence of acute fracture or dislocation. Well-healed prior intratrochanteric fracture and fixation hardware. Reviewed by: Arash Mosqueda MD on 01/23/2021 5:11 PM AKRAY Approved by: Arash Mosqueda MD on 01/23/2021 5:11 PM AKDT Station ID: [id number]
== END 2021-01-23 23:59 | disposition home or self-care (01) ==
LOC: DI.S 08:00
PROVIDERS: ATTEND Physician Assistant Medical
DX: M25.551 Pain in right hip (principal)

== ENCOUNTER 2021-03-17 15:39 | Outpatient (CLI) | payer MEDICAID ==
--- NOTE | 2021-03-17 16:08 | XRAY Report ---
PROCEDURE: Foot 3 View RT INDICATIONS: R FOOT PX TECHNIQUE: 3 views of the foot were acquired. COMPARISON: None FINDINGS: Bones: No fractures or dislocations. No suspicious bony lesions. Small plantar and dorsal calcanea l enthesophytes are seen. Mild midfoot and forefoot joint osteoarthritic changes are seen. Soft tissues: No tibiotalar joint effusion. Achilles tendon appears normal. IMPRESSION: Normal right foot alignment with weightbearing. Mild forefoot joint osteoarthritis. No fracture or di slocation. Small calcaneal enthesophytes. Reviewed by: Wilberto Shepherd MD on 03/17/2021 4:07 PM PDT Approved by: Wilberto Shepherd MD on 03/17/2021 4:07 PM PDT Station ID: [id number]
== END 2021-03-17 15:40 ==
LOC: DI.N 15:39
PROVIDERS: ATTEND Physician Assistant
DX: M19.071 Primary osteoarthritis, right ankle and foot (principal); M77.31 Calcaneal spur, right foot

== ENCOUNTER 2022-09-16 17:17 | Emergency (ER) | payer MEDICAID ==
[2022-09-16] MEDS ORDERED: ADENOSINE 6 MG/2 ML VIAL IVP STA ×3 (17:30→18:09)
[2022-09-16] MEDS ORDERED: ONDANSETRON 4 MG/2 ML VIAL ONE (17:32)
[2022-09-16] MEDS ORDERED: ADENOSINE 6 MG/2 ML VIAL IVP ONE ×2 (17:32→17:39)
[2022-09-16] MEDS ORDERED: ETOMIDATE 40 MG/20 ML VIAL IVP ONE (17:43)
[2022-09-16 17:45] LABS: BASOPHILS # (AUTO) 0.1 10^3/uL (0.0-0.1); BASOPHILS % (AUTO) 0.4 %; EOSINOPHILS % (AUTO) 0.2 %; HCT - HEMATOCRIT 47.5 % (42.0-52.0); HGB - HEMOGLOBIN 15.2 g/dL (14.0-18.0); LYMPHOCYTES # (AUTO) 2.2 10^3/uL (1.5-3.5); LYMPHOCYTES % (AUTO) 17.8 %; MEAN CORPUSCULAR HEMOGLOBIN 32.4 pg (27.0-31.0); MEAN CORPUSCULAR VOLUME 101.3 fL (80.0-94.0); MEAN PLATELET VOLUME 11.3 fL (7.4-11.4); MONOCYTES # (AUTO) 0.7 10^3/uL (0.0-1.0); MONOCYTES % (AUTO) 5.8 %; NEUTROPHILS # (AUTO) 9.3 10^3/uL (1.5-6.6); NEUTROPHILS % (AUTO) 75.2 %; PLT - PLATELET COUNT 221 10^3/uL (130-450); RED BLOOD COUNT 4.69 10^6/uL (4.70-6.10); RED CELL DISTRIBUTION WIDTH 13.8 % (12.0-15.0); WHITE BLOOD COUNT 12.4 x10^3/uL (4.8-10.8)
[2022-09-16 17:56] LABS: ALBUMIN 4.3 g/dL (3.2-5.5); ALBUMIN/GLOBULIN RATIO 1.3 (1.0-2.2); ALKALINE PHOSPHATASE 63 IU/L (42-121); ALT ALANINE AMINOTRANSFERASE 31 IU/L (10-60); AST ASPARTATE AMINOTRANSFERASE 52 IU/L (10-42); BILIRUBIN,TOTAL 0.6 mg/dL (0.2-1.0); BUN - BLOOD UREA NITROGEN 19 mg/dL (6-20); CALCIUM 9.5 mg/dL (8.5-10.3); CARBON DIOXIDE - CO2 23 mmol/L (21-32); CHLORIDE 100 mmol/L (101-111); CREATININE 1.9 mg/dL (0.6-1.2); ETOH - ETHANOL < 5.0 mg/dL; GFR - MDRD 36 (>89); GLUCOSE 179 mg/dL (70-100); LIPASE 64 U/L (22-51); MAGNESIUM 1.9 mg/dL (1.7-2.8); POTASSIUM 4.2 mmol/L (3.5-5.0); SODIUM 136 mmol/L (135-145); TOTAL PROTEIN 7.7 g/dL (6.7-8.2)
[2022-09-16] MEDS ORDERED: ETOMIDATE 40 MG/20 ML VIAL IVP STA (18:02)
[2022-09-16] MEDS ORDERED: SODIUM CHLORIDE 0.9% 1,000 ML IV STA (18:08)
[2022-09-16] MEDS ORDERED: ONDANSETRON 4 MG/2 ML VIAL IVP STA (18:09)
[2022-09-16] MEDS ORDERED: ADENOSINE 12 MG/4 ML VIAL IVP ONE (18:09)
--- NOTE | 2022-09-16 18:29 | ED Physician Documentation ---
PD HPI CHEST PAIN - Stated complaint Stated Complaint: SOA,CHEST PX - Chief complaint Chief Complaint: Cardiac - History obtained from History obtained from: Patient - Additional information Additional information: Patient is a 61-year-old male presenting for evaluation with generalized feeling unwell with reports of feeling short of breath as well as chest pain. When asked about his shortness of breath he says that is been present for years. He also states he has been having chest pain ongoing for several months that has been worsening recently. This [place] started feeling dizzy and lightheaded and felt like he was in a blackout. He rode his bicycle here. He was noted to be significantly tachycardic in triage. History is limited due to patient condition. Review of Systems Constitutional: denies: Fever Cardiac: reports: Chest pain / pressure Respiratory: reports: Dyspnea GI: reports: Nausea, Vomiting. denies: Diarrhea Musculoskeletal: denies: Back pain Neurologic: reports: Near syncope. denies: Headache PD PAST MEDICAL HISTORY - Past Medical History Cardiovascular: None Respiratory: Asthma, COPD Endocrine/Autoimmune: None GI: None : Other HEENT: Chronic vision loss Psych: Bipolar disorder Musculoskeletal: Other Derm: None - Past Surgical History Past Surgical History: Yes General: Other Ortho: Other - Present Medications Home Medications: Ambulatory Orders Medication Instructions Recorded Confirmed Albuterol Sulfate [Albuterol 1 puffs 02/02/19 Sulfate Hfa] Oxycodone HCl/Acetaminophen 1 - 2 each PO Q6H PRN #14 tablet 02/02/19 [Percocet 5-325 mg Tablet] - Allergies Allergies/Adverse Reactions: Allergies Allergy/AdvReac Type Severity Reaction Status Date / Time venom-wasp [wasp venom] Allergy Anaphylaxis Verified 09/16/22 18:05 - Social History Does the pt smoke?: Yes Smoking Status: Current every day smoker Does the pt drink ETOH?: Yes Does the pt have substance abuse?: No - Immunizations Immunizations are current?: Yes Immunizations: TDAP current <10years - POLST Patient has POLST: No POLST Status: Full Code PD ED PE NORMAL - General General: Well developed/nourished, Other (Alert and oriented, pale, appears distressed) - HEENT HEENT: Atraumatic - Neck Neck: Supple, no meningeal sign - Cardiac Cardiac: Other (Tachycardic, regular rhythm) - Respiratory Respiratory: No respiratory distress, Clear bilaterally - Abdomen Abdomen: Soft, Non tender - Extremities Extremities: No edema, No calf tenderness / cord - Neuro Neuro: Normal speech Results - Vitals Vitals: Vital Signs - 24 hr 09/16/22 09/16/22 09/16/22 17:20 18:04 18:19 Temperature 36.5 C Heart Rate 230 H 78 70 Respiratory 20 16 16 Rate Blood Pressure 65/48 L 114/71 116/72 O2 Saturation 100 100 99 If not protocol 2 2 : Oxygen Flow, liters/minute 09/16/22 09/16/22 09/16/22 18:34 18:49 19:04 Temperature Heart Rate 72 67 67 Respiratory 13 16 12 Rate Blood Pressure 104/67 104/67 113/72 O2 Saturation 98 99 100 If not protocol 2 2 2 : Oxygen Flow, liters/minute 09/16/22 09/16/22 09/16/22 19:15 19:30 19:45 Temperature Heart Rate 66 66 66 Respiratory 16 12 12 Rate Blood Pressure 113/72 113/72 113/72 O2 Saturation 100 98 98 If not protocol : Oxygen Flow, liters/minute 09/16/22 09/16/22 09/16/22 20:00 20:15 20:30 Temperature 36.5 C 36.5 C Heart Rate 67 72 66 Respiratory 15 12 14 Rate Blood Pressure 124/79 124/79 124/80 O2 Saturation 98 96 98 If not protocol 2 : Oxygen Flow, liters/minute 09/16/22 09/16/22 09/16/22 20:45 21:00 21:30 Temperature Heart Rate 68 64 65 Respiratory 16 12 12 Rate Blood Pressure 124/80 126/80 134/76 H O2 Saturation 96 96 96 If not protocol : Oxygen Flow, liters/minute 09/16/22 09/16/22 21:45 22:00 Temperature Heart Rate 60 63 Respiratory 12 12 Rate Blood Pressure 134/76 H 118/79 O2 Saturation 94 95 If not protocol : Oxygen Flow, liters/minute Oxygen O2 Source Room air - EKG (time done) 1731 EKG releavant findings:: EKG personally interpreted by author of this note. Relevant findings are: Rate 240, supraventricular tachycardia,ST depressions in multiple leads Rate: Rate (enter#) (240) Rhythm: SVT Ischemia: ST depression. No: ST elevation c/w ischemia 1744 EKG releavant findings:: EKG personally interpreted by author of this note. Relevant findings are: Rate 83, normal sinus rhythm, no STEMI, minimal depressions in lateral leads Rate: Rate (enter#) Rhythm: NSR Intervals: No: Prolonged QT Ischemia: ST depression (Lateral leads). No: ST elevation c/w ischemia Compare to prior EKG: Changed from prior EKG - Labs Labs: Laboratory Tests 09/16/22 09/16/22 09/16/22 17:36 17:36 17:36 WBC 12.4 H RBC 4.69 L Hgb 15.2 Hct 47.5 MCV 101.3 H MCH 32.4 H MCHC 32.0 RDW 13.8 Plt Count 221 MPV 11.3 Neut # (Auto) 9.3 H Lymph # (Auto) 2.2 [place] # (Auto) 0.7 Eos # (Auto) 0.0 Baso # (Auto) 0.1 Absolute Nucleated RBC 0.00 Nucleated RBC % 0.0 Sodium 136 Potassium 4.2 Chloride 100 L Carbon Dioxide 23 Anion Gap 13.0 BUN 19 Creatinine 1.9 H Estimated GFR (MDRD) 36 L Glucose 179 H Calcium 9.5 Magnesium 1.9 Total Bilirubin 0.6 AST 52 H ALT 31 Alkaline Phosphatase 63 Troponin I High Sens B-Natriuretic Peptide 267 H Total Protein 7.7 Albumin 4.3 Globulin 3.4 Albumin/Globulin Ratio 1.3 Lipase 64 H TSH Urine Color Urine Clarity Urine pH Ur Specific [place] Urine Protein Urine Glucose (UA) Urine Ketones Urine Occult Blood Urine Nitrite Urine Bilirubin Urine Urobilinogen Ur Leukocyte Esterase Urine RBC Urine WBC Ur Squamous Epith Cells Urine Bacteria Urine Casts Urine Mucus Ur Microscopic Review Urine Culture Comments Urine Opiates Screen Ur Oxycodone Screen Urine Methadone Screen Ur Propoxyphene Screen Ur Barbiturates Screen Ur Tricyclics Screen Ur Phencyclidine Scrn Ur Amphetamine Screen U Methamphetamines Scrn U Benzodiazepines Scrn Urine Cocaine Screen U Cannabinoids Screen Ethyl Alcohol < 5.0 SARS-CoV-2 (PCR) 09/16/22 09/16/22 09/16/22 17:36 17:36 19:19 WBC RBC Hgb Hct MCV MCH MCHC RDW Plt Count MPV Neut # (Auto) Lymph # (Auto) [place] # (Auto) Eos # (Auto) Baso # (Auto) Absolute Nucleated RBC Nucleated RBC % Sodium Potassium Chloride Carbon Dioxide Anion Gap BUN Creatinine Estimated GFR (MDRD) Glucose Calcium Magnesium Total Bilirubin AST ALT Alkaline Phosphatase Troponin I High Sens 38.3 H* B-Natriuretic Peptide Total Protein Albumin Globulin Albumin/Globulin Ratio Lipase TSH 4.26 Urine Color YELLOW Urine Clarity HAZY Urine pH 6.0 Ur Specific [place] 1.020 Urine Protein 100 H Urine Glucose (UA) 100 H Urine Ketones NEGATIVE Urine Occult Blood NEGATIVE Urine Nitrite NEGATIVE Urine Bilirubin NEGATIVE Urine Urobilinogen 0.2 (NORMAL) Ur Leukocyte Esterase NEGATIVE Urine RBC 0-5 Urine WBC 4-5 Ur Squamous Epith Cells FEW Squamous Urine Bacteria Rare Urine Casts 3-5 Granular Casts Urine Mucus Few Strands Ur Microscopic Review INDICATED Urine Culture Comments NOT INDICATED Urine Opiates Screen NEGATIVE Ur Oxycodone Screen NEGATIVE Urine Methadone Screen NEGATIVE Ur Propoxyphene Screen NEGATIVE Ur Barbiturates Screen NEGATIVE Ur Tricyclics Screen NEGATIVE Ur Phencyclidine Scrn NEGATIVE Ur Amphetamine Screen NEGATIVE U Methamphetamines Scrn NEGATIVE U Benzodiazepines Scrn NEGATIVE Urine Cocaine Screen NEGATIVE U Cannabinoids Screen POSITIVE H Ethyl Alcohol SARS-CoV-2 (PCR) 09/16/22 09/16/22 19:26 20:36 WBC RBC Hgb Hct MCV MCH MCHC RDW Plt Count MPV Neut # (Auto) Lymph # (Auto) [place] # (Auto) Eos # (Auto) Baso # (Auto) Absolute Nucleated RBC Nucleated RBC % Sodium Potassium Chloride Carbon Dioxide Anion Gap BUN Creatinine Estimated GFR (MDRD) Glucose Calcium Magnesium Total Bilirubin AST ALT Alkaline Phosphatase Troponin I High Sens 253.2 H* B-Natriuretic Peptide Total Protein Albumin Globulin Albumin/Globulin Ratio Lipase TSH Urine Color Urine Clarity Urine pH Ur Specific [place] Urine Protein Urine Glucose (UA) Urine Ketones Urine Occult Blood Urine Nitrite Urine Bilirubin Urine Urobilinogen Ur Leukocyte Esterase Urine RBC Urine WBC Ur Squamous Epith Cells Urine Bacteria Urine Casts Urine Mucus Ur Microscopic Review Urine Culture Comments Urine Opiates Screen Ur Oxycodone Screen Urine Methadone Screen Ur Propoxyphene Screen Ur Barbiturates Screen Ur Tricyclics Screen Ur Phencyclidine Scrn Ur Amphetamine Screen U Methamphetamines Scrn U Benzodiazepines Scrn Urine Cocaine Screen U Cannabinoids Screen Ethyl Alcohol SARS-CoV-2 (PCR) NOT DETECTED Procedures - Procedural sedation Sedation prep: Informed consent (Verbal consent to due to patient acuity), ASA 2 - mild disease, IV O2 monitor, ET CO2 monitor Sedation Medications: etomidate Mallampati classification: III Patient status during sedation: Responds to tactile, Vitals remained stable, Maintained airway Sedation recovery: Recovered uneventfully Time in sedation (Minutes): 10 - Cardioversion - Major 1 Time of attempt: 17:40 Indication: Tachyarrhythmia, Clinically unstable, Hypotension Risks, benefits, alternatives explained to: N/A pt unstable Prep: IV, O2, hall monitor, Pulse ox, Airway equip CS via: Pads, AP approach Sync: 100j (120J) Post cardioversion rhythm: NSR Performed by: ED MD Medical Decision Making - ED course Complexity details: reviewed results, re-evaluated patient, d/w patient, d/w sec reporting consultant ED course: 1809 - D/ Dr. Marjorie Curtis ([facility], cardiology). Discussed the patient's presentations and the lack of any effect from adenosine. I then sent her images of the EKGs with no patient identifiers. She did review these images and believes that because the vectors are the same in the 2 EKGs that this is SVT and does not believe that this is ventricular tachycardia. Recommends usual treatment and work-up for SVT. 2033 - D/ Dr. Marjorie Curtis ([facility], cardiology). Reviewed patient's history with reports of chest pain that has worsened over the past several days. Discussed his abnormal troponins. Agrees that the rise in troponin over 2 hours seems much greater than what she would be expecting just from demand from his arrhythmia. She recommends treating him as an NSTEMI and would recommend transfer for ischemic evaluation. Also agrees with plan for Toprol XL. Patient is a 61-year-old male presenting for evaluation of generally feeling un well recently. He is somewhat of a poor historian and often goes into tangents even with directed questions. It sounds like he is recently been having left- sided chest pain and having episodes where he feels his heart racing as well as feeling lightheaded. Today it was worse around 230 this afternoon. Upon arrival to the emergency department he was found to be quite tachycardic and EKG demonstrates SVT. He had no response to 2 doses of adenosine Including not even a brief slowing of his heart rate. He was becoming hypotensive and was given etomidate and emergently cardioverted into a normal sinus rhythm. I did consult with cardiology Review his initial EKG and she also agrees that it appears to be SVT. Patient has reported ongoing left-sided chest pain.He also states that the chest pain has worsened in the past several days. He is not able to describe any exacerbating or alleviating factors. He does not have a underground bolting machine operator and does not have a PCP. He reports having a place to say but also somewhat describes himself as being indigent. Airam was obtained given reports of chest pain and initial was 38. A 2-hour troponin was obtained which had significantly increased to 258. His chest x-ray is unremarkable. His labs are otherwise without significant findings. I did review his troponins and presentation with the on-call [facility] underground bolting machine operator. She does agree that this rise seems more than what she would have expected just related to demand and agrees that he should have an ischemic evaluation. She agrees with plan to treat him as an NSTEMI and to transfer. Patient is agreeable with this plan as well. Boarding orders have been placed and patient will be signed out to oncoming provider. Patient did have another short run of what appeared to be SVT on the monitor.At time of shift change she does report being pain-free. Departure - Departure Disposition: 02 Transfer Acute Care Hosp Clinical Impression: NSTEMI (non-ST elevated myocardial infarction), SVT (supraventricular tachycardia), TOMASZ (acute kidney injury) Condition: Serious
--- NOTE | 2022-09-16 18:44 | XRAY Report ---
PROCEDURE: Chest 1 View X-Ray INDICATIONS: chest pain TECHNIQUE: One view of the chest was acquired. COMPARISON: None. FINDINGS: Surgical changes and devices: None. Lungs and pleura: No pleural effusions or pneumothorax. Lungs are clear. Mediastinum: Mediastinal contours appear normal. Heart size is normal. Bones and chest wall: No suspicious bony lesions. Overlying soft tissues appear unremarkable. IMPRESSION: No acute cardiopulmonary abnormality. Reviewed by: Julio Cesar Landers on 09/16/2022 6:42 PM PDT Approved by: Julio Cesar Landers on 09/16/2022 6:42 PM PDT Station ID: [id number]
[2022-09-16 19:30] LABS: MUDS CUTOFF CONCENTRATIONS CUTOFF CONC BELOW:
[2022-09-16 19:34] LABS: BILIRUBIN,URINE NEGATIVE (NEGATIVE); GLUCOSE, URINE (UA) 100 mg/dL (NEGATIVE); KETONES,URINE (UA) NEGATIVE (NEGATIVE); LEUKOCYTE ESTERASE, URINE NEGATIVE (NEGATIVE); NITRITE,URINE NEGATIVE (NEGATIVE); OCCULT BLOOD,URINE NEGATIVE (NEGATIVE); PROTEIN,URINE 100 mg/dL (NEGATIVE); UROBILINOGEN,URINE 0.2 (NORMAL) E.U./dL (NORMAL)
[2022-09-16 19:35] LABS: CLARITY,URINE HAZY (CLEAR)
[2022-09-16 19:45] LABS: AMPHETAMINE SCREEN,URINE NEGATIVE (NEGATIVE); BARBITURATE SCREEN,UR NEGATIVE (NEGATIVE); BENZODIAZEPINES SCREEN, URINE NEGATIVE (NEGATIVE); COCAINE SCREEN URINE NEGATIVE (NEGATIVE); METHADONE SCREEN, URINE NEGATIVE (NEGATIVE); METHAMPHETAMINES SCREEN, URINE NEGATIVE (NEGATIVE); OPIATE SCREEN, URINE NEGATIVE (NEGATIVE); OXYCODONE SCREEN, URINE NEGATIVE (NEGATIVE); PROPOXYPHENE SCREEN, URINE NEGATIVE (NEGATIVE); THC CANNABINOID SCREEN, URINE POSITIVE (NEGATIVE); TRICYCLIC ANTIDEPRESSANT,URINE NEGATIVE (NEGATIVE)
[2022-09-16] MEDS ORDERED: METOPROLOL SUCCINATE 25 MG TABLET PO STA (19:57)
[2022-09-16] MEDS ORDERED: METOPROLOL SUCCINATE 25 MG TABLET PO SCH (20:00)
[2022-09-16 20:02] LABS: RBC,URINE 0-5 /HPF (0-5)
[2022-09-16 20:03] LABS: BACTERIA,URINE Rare /HPF (None Seen); MUCUS,URINE Few Strands; SQUAMOUS EPITHELIAL CELL,UR FEW Squamous (<= Few)
[2022-09-16] MEDS ORDERED: ASPIRIN CHEW 81 MG TABLET PO STA (20:27)
[2022-09-16] MEDS ORDERED: ENOXAPARIN 80 MG/0.8 ML SYRINGE SUBQ STA (20:28)
[2022-09-16] MEDS ORDERED: ACETAMINOPHEN 500 MG TABLET PO PRN (20:36)
[2022-09-16] MEDS ORDERED: ONDANSETRON 4 MG/2 ML VIAL IVP PRN (20:36)
[2022-09-16] MEDS ORDERED: ATORVASTATIN 40 MG TABLET PO SCH (21:00)
[2022-09-17 05:12] LABS: BASOPHILS % (AUTO) 0.4 %; EOSINOPHILS # (AUTO) 0.1 10^3/uL (0.0-0.7); EOSINOPHILS % (AUTO) 0.9 %; HCT - HEMATOCRIT 39.1 % (42.0-52.0); HGB - HEMOGLOBIN 12.8 g/dL (14.0-18.0); MEAN CORPUSCULAR HEMOGLOBIN 32.7 pg (27.0-31.0); MEAN CORPUSCULAR HGB CONC 32.7 g/dL (32.0-36.0); MEAN CORPUSCULAR VOLUME 99.7 fL (80.0-94.0); MEAN PLATELET VOLUME 11.2 fL (7.4-11.4); MONOCYTES # (AUTO) 0.7 10^3/uL (0.0-1.0); MONOCYTES % (AUTO) 9.2 %; NEUTROPHILS # (AUTO) 4.2 10^3/uL (1.5-6.6); NEUTROPHILS % (AUTO) 52.3 %; PLT - PLATELET COUNT 182 10^3/uL (130-450); RED BLOOD COUNT 3.92 10^6/uL (4.70-6.10); RED CELL DISTRIBUTION WIDTH 13.8 % (12.0-15.0)
[2022-09-17 05:19] LABS: CALCIUM 8.8 mg/dL (8.5-10.3); CREATININE 1.3 mg/dL (0.6-1.2); POTASSIUM 4.3 mmol/L (3.5-5.0)
[2022-09-17] MEDS ORDERED: PANTOPRAZOLE 40 MG TABLET PO SCH (07:00)
[2022-09-17] MEDS ORDERED: ASPIRIN CHEW 81 MG TABLET PO SCH (09:00)
[2022-09-17] MEDS ORDERED: METOPROLOL TARTRATE 25 MG TABLET PO SCH (09:00)
[2022-09-17] MEDS ORDERED: LORazepam 2 MG/ML VIAL IVP STA (09:49)
[2022-09-17] MEDS ORDERED: HYDROmorphone 0.5 MG/0.5 ML SYRINGE IVP STA (09:51)
[2022-09-17] MEDS ORDERED: NICOTINE 14 MG PATCH TOP STA (10:28)
--- NOTE | 2022-09-17 10:32 | XRAY Report ---
PROCEDURE: Hip w/Pelvis 2-3V RT INDICATIONS: hip pain TECHNIQUE: AP pelvis with lateral view(s) of the right hip(s). COMPARISON: None. FINDINGS: Bones: Expected appearance of right hip orthopedic hardware. No evidence of hardware failure or loos ening. No fractures or dislocations. Pelvic ring appears intact. No suspicious bony lesions. Soft tissues: The visualized bowel gas pattern is normal. No suspicious soft tissue calcifications. IMPRESSION: No evidence acute bony abnormality of the pelvis and right hip. Reviewed by: Jeff Lizarraga MD on 09/17/2022 10:31 AM PDT Approved by: Jeff Lizarraga MD on 09/17/2022 10:31 AM PDT Station ID: [id number]
[2022-09-17] MEDS ORDERED: LORazepam 1 MG TABLET PO PRN (14:12)
[2022-09-17 16:03] VITALS: BP 95/52
--- NOTE | 2022-09-17 17:33 | ED Physician Documentation ---
ED Addendum - Addendum Addendum: 09/17/22 17:29 The patient was stable here in the ER. This morning he had been little bit anxious but not having breakfast and also that we had not found a hospital to transfer to. He also was feeling anxious about not having had cigarettes. He was given breakfast as well as Ativan and a nicotine patch which did suffice. He rested through the day. Word from outlying facilities were still no beds available at this time though suggest this may be having 1 this afternoon. The patient became annoyed I guess is the best word for being here without progress. I talked with him about it and he is determined to leave. I told him I would provide him prescriptions for beta-lobo and baby aspirin and some medication for his back pain to provide the best care we can and lieu of his leaving against advice. Disposition: The patient is leaving AGAINST MEDICAL ADVICE Diagnoses: 1. SVT episode 2. Elevated troponin 3. Rule out myocardial infarction 4. Chronic back pain 5. Nicotine addiction
== END 2022-09-17 17:34 | disposition left against medical advice (07) ==
LOC: ED 17:17
DX: I21.4 Non-ST elevation (NSTEMI) myocardial infarction (principal); I47.1 Supraventricular tachycardia; N17.9 Acute kidney failure, unspecified; I95.9 Hypotension, unspecified; F41.9 Anxiety disorder, unspecified; M54.9 Dorsalgia, unspecified; G89.29 Other chronic pain; F17.210 Nicotine dependence, cigarettes, uncomplicated; Z76.4 Other boarder to healthcare facility; Z20.822 Contact with and (suspected) exposure to COVID-19
CPT/HCPCS: 36415; 71045; 73502; 80048; 80053; 80306; 80320; 81001; 83690; 83735; 83880; 84443; 84484; 85025; 87635; 92960; 93005; 96372; 96374; 96375; 99152; 99284; 99285; A9270; J0153; J1170; J1650; J2060; 81003; 87086

== ENCOUNTER 2023-01-08 15:07 | Outpatient (CLI) | payer MEDICAID ==
--- NOTE | 2023-01-08 15:54 | XRAY Report ---
PROCEDURE: Ribs w/PA Chest LT INDICATIONS: RIB PAIN,LEFT SIDED TECHNIQUE: 2 views of the left ribs were acquired, along with a single view chest. COMPARISON: None. FINDINGS: Surgical changes and devices: None. Bones and chest wall: Fractures of lateral left sixth seventh and eighth ribs with callus formation. No suspicious bony lesions. Overlying soft tissues appear unremarkable. Lungs and pleura: No pleural effusions or pneumothorax. Lungs appear clear. Mediastinum: Mediastinal contours appear normal. Heart size is normal. IMPRESSION: Left-sided lateral rib fractures which appear subacute or chronic. Recommend correlation with point t enderness. Reviewed by: David Cannon MD on 01/08/2023 3:53 PM PDT Approved by: David Cannon MD on 01/08/2023 3:53 PM PDT Station ID: [id number]
== END 2023-01-08 15:08 | disposition home or self-care (01) ==
LOC: DI 15:07
PROVIDERS: ATTEND Nurse Practitioner
DX: S22.42XA Multiple fractures of ribs, left side, initial encounter for closed fracture (principal)

== ENCOUNTER 2023-01-28 12:59 | Outpatient (CLI) | payer MEDICAID ==
--- NOTE | 2023-01-28 20:30 | XRAY Report ---
PROCEDURE: Hips 2V BILAT INDICATIONS: HIP PAIN TECHNIQUE: PA view of pelvis and frog-leg lateral views of the right and left hips. COMPARISON: None. FINDINGS: Bones: Postsurgical changes are seen from right proximal femoral fracture fixation with a gamma nail type device. Metallic hardware is intact. Fracture appears to be healed. No new osseous abnormality. No suspicious osseous lesion. Mild degenerative changes in the included spine and hips. Soft tissues: No suspicious soft tissue calcifications or masses. IMPRESSION: 1.Mild osteoarthrosis of the hips bilaterally. 2.Stable appearance of right proximal femoral fixation hardware. Reviewed by: Timothy Valerio MD on 01/28/2023 8:28 PM PDT Approved by: Timothy Valerio MD on 01/28/2023 8:28 PM PDT Station ID: [id number]
== END 2023-01-28 13:00 | disposition home or self-care (01) ==
LOC: DI 12:59
PROVIDERS: ATTEND Physician Assistant Medical
DX: M16.0 Bilateral primary osteoarthritis of hip (principal)

== ENCOUNTER 2024-01-23 16:07 | Outpatient (CLI) | payer MEDICAID | END 2024-01-23 23:59 | disposition E | LOC: EMS 16:07 ==

== ENCOUNTER 2024-01-23 20:31 | Outpatient (CLI) | payer MEDICAID | END 2024-01-23 20:32 | disposition home or self-care (01) | LOC: DI 20:31 | DX: Z53.9 Procedure and treatment not carried out, unspecified reason (principal) ==